=== PATIENT | male | born 1935 | race Caucasian/White ===

== ENCOUNTER → 2021-04-11 13:04 | Outpatient (BNVA) | payer MEDICARE, MEDICAID, SELFPAY | PROVIDERS: PCP Internal Medicine; Visit Provider Urology | DX: N40.1 Benign prostatic hyperplasia with lower urinary tract symptoms (principal); N13.8 Other obstructive and reflux uropathy; N39.0 Urinary tract infection, site not specified | CPT/HCPCS: 99212 ==

== ENCOUNTER → 2022-04-15 13:16 | Outpatient (BNVA) | payer MEDICARE, MEDICAID, SELFPAY | PROVIDERS: PCP Internal Medicine; Visit Provider Urology | DX: N40.1 Benign prostatic hyperplasia with lower urinary tract symptoms (principal); N13.8 Other obstructive and reflux uropathy; N39.0 Urinary tract infection, site not specified | CPT/HCPCS: 51798; 99212 ==

== ENCOUNTER 2023-04-16 13:06 | Outpatient (AMB) | payer MEDICARE, MEDICAID, SELFPAY ==
--- NOTE | 2023-04-16 13:40 | MHC.OFFVIS ---
Intake Intake Visit Reasons: 1y/PVR Intake Note: Patient presents today for a yearly follow-up and PVR Meds- None Allergies to Antibiotic- No Known Allergies Blood Thinner- clopidogrel Post Void Residual:0ml Patient Symptoms: Patient stated he does not have lamar UTI symptoms Allergies latex [LATEX] Allergy (Unknown, Verified 04/16/23 13:51) RASH morphine [Morphine] Allergy (Unknown, Verified 04/16/23 13:51) GI UPSET/ HALLUCINATIONS, vomiting Latex Gloves Allergy (Unknown, Uncoded 04/16/23 13:51) rash HPI HPI Comments History of Present Illness Details Rafat is a pleasant male. He is a patient of Dr. Gonzalez. He seen for following urologic conditions - lower urinary tract symptoms Minimal issues with urination PVR stays low Follows at the [place] No recurrence of infection since last seen Lower urinary tract symptoms Prior history of laser prostatectomy Prior recurring UTIs Has standby Bactrim for breakthrough infection Last culture 04/28 Klebsiella ampicillin resistant Review of Systems Const Denies chills and Denies fever(s) Card Reports no additional complaints and Denies syncope Resp Denies cough GI Denies abdominal pain and Denies heartburn Reports as per HPI and Denies change in libido Neuro Denies syncope Psych Denies change in libido Endo Denies change in libido Physical Exam Const General: cooperative, healthy appearing, comfortable and no acute distress Orientation/consciousness: patient oriented x3 HEENT Face and sinus: Yes normal facial exam Mouth: moist mucous membranes Neck Neck: Yes normal visual inspection, Yes full ROM and Yes trachea midline Chest Chest palpation & inspection: normal inspection of the chest Resp Effort & Inspection: normal respiratory effort, able to speak in complete sentences and no respiratory distress GI Inspection: Yes normal to inspection Back/Spine/Pelvis Cervical Spine: normal cervical lordosis Thoracic/Lumbar Spine: thoracic and lumbar spine normal to inspection Skin General skin exam: no rashes or lesions noted Neuro General: patient oriented x3, gait normal, tone normal and moves all extremities Extrem General: Yes normal to inspection and Yes capillary refill normal Office Procedures Post Void Residual Post Residual Void Post Void Residual (PVR): 0 [id number] Void Residual by ultrasound Assessment & Plan Assessment & Plan (1) Recurrent UTI: Code(s): N39.0 - Urinary tract infection, site not specified (2) BPH w urinary obs/LUTS: Code(s): N40.1 - Benign prostatic hyperplasia with lower urinary tract symptoms; N13.8 - Other obstructive and reflux uropathy Plan Twelve month follow-up Orders: Orders AMB Post Void Residual by ultrasound 04/16/23 R33.9 - Retention of urine, unspecified Patient Instructions: Imaging studies, laboratory and physical exam results were discussed and reviewed in detail. No major barriers to patient understanding were identified. An opportunity to ask questions regarding the treatment plan was provided. All questions were answered. The patient expressed understanding and agreement with the above treatment plan. The patient is aware they should contact our office by phone for worsening of their current condition or the appearance of new urologic symptoms. Compliance is encouraged with any medications and followup testing that is ordered. It is a privilege to participate in the urologic care of your patient. If you have any questions or concerns regarding treatment for the above conditions, or other urologic issues, please do not hesitate to contact me. The office telephone contact is [phone]. This note is constructed using voice recognition software. While every effort has been made to ensure accuracy neurological surgeon errors may have been included. Yours sincerely, Dr Ariel Wei MD, [facility] - Urology Providers of Expert, Compassionate Care for the Genitourinary System Coding Level of Care Code Est Pt Level 4 (53889) Diagnoses Recurrent UTI N39.0 BPH w urinary obs/LUTS N40.1; N13.8 CPT Codes Post Residual Void - PVR CPT Code: 55557-Oajo Void Residual by ultrasound ([id number])
== END 2023-04-16 13:57 | disposition home or self-care (01) ==
PROVIDERS: PCP Internal Medicine; Visit Provider Urology
DX: N39.0 Urinary tract infection, site not specified (principal); N40.1 Benign prostatic hyperplasia with lower urinary tract symptoms; N13.8 Other obstructive and reflux uropathy
CPT/HCPCS: 99213

== ENCOUNTER → 2023-04-16 13:06 | Outpatient (BNVA) | payer MEDICARE, MEDICAID, SELFPAY | PROVIDERS: Visit Provider Urology | DX: N40.1 Benign prostatic hyperplasia with lower urinary tract symptoms (principal); N39.0 Urinary tract infection, site not specified; N13.8 Other obstructive and reflux uropathy | CPT/HCPCS: 51798; 99212 ==

== ENCOUNTER 2024-05-23 10:48 | Outpatient (AMB) | payer MEDICARE, MEDICAID, SELFPAY ==
--- NOTE | 2024-05-23 10:55 | A.OFFVIS_ITS ---
Intake Visit Reasons: 1yr/PVR Intake Note: Patient presents today for a yearly follow-up and PVR Meds- None Allergies to Antibiotic- No Known Allergies Blood Thinner- clopidogrel Post Void Residual:0ml'S TODAY'S PVR: 21ML'S Thread Pulling Machine Attendant Required: No Allergies latex [LATEX] Allergy (Unknown, Verified 05/23/24 10:57) RASH morphine [Morphine] Allergy (Unknown, Verified 05/23/24 10:57) GI UPSET/ HALLUCINATIONS, vomiting Latex Gloves Allergy (Unknown, Uncoded 05/23/24 10:57) rash HPI Comments Details: Rafat is a pleasant male. He is a patient of Dr. Gonzalez. He seen for following urologic conditions - lower urinary tract symptoms PVR remains low Follows at the [place] No recurrence of infection since last seen May follow-up p.r.n. Given starter prescription for Bactrim if has UTI at weekend Lower urinary tract symptoms Prior history of laser prostatectomy Prior recurring UTIs Has standby Bactrim for breakthrough infection Last culture 04/28 Klebsiella ampicillin resistant Review of Systems Const Denies chills and Denies fever(s) Card Reports no additional complaints and Denies syncope Resp Denies cough GI Denies abdominal pain and Denies heartburn Reports as per HPI and Denies change in libido Neuro Denies syncope Psych Denies change in libido Endo Denies change in libido Physical Exam Const General: cooperative, healthy appearing, comfortable and no acute distress Orientation/consciousness: patient oriented x3 HEENT Face and sinus: Yes normal facial exam Mouth: moist mucous membranes Neck Neck: Yes normal visual inspection, Yes full ROM and Yes trachea midline Chest Chest palpation & inspection: normal inspection of the chest Resp Effort & Inspection: normal respiratory effort, able to speak in complete sentences and no respiratory distress GI Inspection: Yes normal to inspection Back/Spine/Pelvis Cervical Spine: normal cervical lordosis Thoracic/Lumbar Spine: thoracic and lumbar spine normal to inspection Skin General skin exam: no rashes or lesions noted Neuro General: patient oriented x3, gait normal, tone normal and moves all extremities Extrem General: Yes normal to inspection and Yes capillary refill normal Office Procedures Post Void Residual Post Residual Void Post Void Residual (PVR): 21 [id number] Void Residual by ultrasound Results AMB Urinalysis, Automated UA Leukoctes 0 Mya/uL Last Edit by SOL Miller on 05/23/24 11:36 UA Nitrite Negative Last Edit by SOL Miller on 05/23/24 11:36 UA Urobilinogen 0.2 mg/dL Last Edit by [facility] on 05/23/24 11:3 6 UA Protein 0 mg/dL Last Edit by Angelito Jones [facility] on 05/23/24 11:36 UA pH 6.0 Last Edit by Angelito Jones [facility] on 05/23/24 11:36 UA Blood 0 Julio/uL Last Edit by Angelito Jones [facility] on 05/23/24 11:36 UA Specific [place] 1.015 Last Edit by Angelito Jones [facility] on 05/23/24 11: 36 UA Ketone Negative Last Edit by Angelito Jones [facility] on 05/23/24 11:36 UA Bilirubin 0 mg/dL Last Edit by Angelito Jones [facility] on 05/23/24 11:36 UA Glucose 0 mg/dL Last Edit by Angelito Jones [facility] on 05/23/24 11:36 Assessment & Plan Assessment & Plan (1) BPH w urinary obs/LUTS: Code(s): N40.1 - Benign prostatic hyperplasia with lower urinary tract symptoms; N13.8 - Other obstructive and reflux uropathy Category: Medical (2) Recurrent UTI: Code(s): N39.0 - Urinary tract infection, site not specified Category: Medical Plan P.r.n. follow-up Orders: Orders AMB Urinalysis Automated Today Z13.9 - Encounter for screening, unspecified Medications: New sulfamethoxazole-trimethoprim 400-80 mg (Bactrim) 1 tab PO BID 5 days 10 tabs 0RF N39.0 - Urinary tract infection, site not specified Patient Instructions: This note is constructed using voice recognition software. While every effort has been made to ensure accuracy producer errors may have been included. Imaging studies, laboratory and physical exam results were discussed and reviewed in detail. No major barriers to patient understanding were identified. An opportunity to ask questions regarding the treatment plan was provided. All questions were answered. The patient expressed understanding and agreement with the above treatment plan. The patient is aware they should contact our office by phone for worsening of their current condition or the appearance of new urologic symptoms. Compliance is encouraged with any medications and followup testing that is ordered. It is a privilege to participate in the urologic care of your patient. If you have any questions or concerns regarding treatment for the above conditions, or other urologic issues, please do not hesitate to contact me. The office telephone contact is [phone]. Sincerely, Dr Ariel Wei MD, [facility] - Urology Compassionate Specialist Care for the Genitourinary System Coding Level of Care Code Est Pt Level 4 (68539) Diagnoses BPH w urinary obs/LUTS N40.1; N13.8 Recurrent UTI N39.0 CPT Codes Post Residual Void - PVR CPT Code: 59231-Qlkr Void Residual by ultrasound ([id number])
--- OUTSIDE RECORDS SUMMARY | 2024-05-23 13:07 | XMS_ITS | Clinical Summary ---
Author Organization Formerly [facility] Address [address] [place] [address] Care Team Providers Care Occupancy Specialist Name Role Phone Unavailable Primary Care Provider Unavailabl e Social History Tobacco Use Types Packs/Day Years Used Date Smoking Tobacco: Never Assessed Sex and Gender Information Value Date Recorded Sex Assigned at Not on file Gender Identity Not on file Sexual Orientation Not on file Plan of Treatment Health Maintenance Due Date Last Done Comments DTaP/Tdap/Td Vaccines (1 - Tdap) 08[birth year]10/1954 Pneumococcal Vaccines 50+ (1 of 1 - PCV) 08/10/1985 Zoster (Shingles) Vaccine (1 of 2) 08/10/1985 RSV Vaccine 60 years and old er and Patients (1 - 1-dose 75+ series) 08/10/2010 Influenza Vaccine 09/09/2023 COVID-19 Vaccine ( - 2023-2 5 season) 2023 Hepatitis B Vaccines Aged Out No long er eligible based on patient's age to complete this topic
--- OUTSIDE RECORDS SUMMARY | 2024-05-23 13:07 | XMS_ITS | Encounter Summary ---
Author Organization [facility] Address [address] [facility] [address] [place] [address] Phone Care Team Providers Care District Adviser Name Role Phone Gigi Gonzalez MD Primary Care Provider Gigi Gonzalez MD Unavailable [phone] Yosvany Galeas MD Unavailable Un available Raymundo Chiu MD Unavailable + Oliver Lezama MD Unavailable [phone] Encounter Details Date Type Department Care Team (Late st Contact Info) Description 03/21/2020 Procedure [facility], [address] [address] Social History Tobacco Use Types Packs/Day Years Used Date Smoking Tobacco: Never Smokeless Tobacco: Never Alcohol Use Standard Drinks/Week Comments No 0 (1 standard drink = 0.6 oz pur e alcohol) Sex and Gender Information Value Date Recorded Sex Assigned at Male 06/20/2021 1:00 AM EDT Gender Identity Male 06/20/2021 1:00 AM EDT Sexual Orientation Straight 06/20/2021 1: 00 AM EDT documented as of this encounter Plan of Treatment Upcoming Encounters Date Type Department Care Team (Late Contact Info) Description 08/04/2024 1:00 PM EDT Appointment [facility] Internal Medicine [address] [place], [place] [phone] Gigi Gonzalez MD [address] [place], [place] [phone] documented as of this encounter Visit Diagnoses Not on filedocumented in this encounter Additional Health Concerns Infection Onset Date Last Indicated Resolved Time CoV-Presumed 07/08/2021 07/08/2021 07/29/2021 1:21 AM EDT Assessment Noted Time PHQ-2 Depression Total Score: 0 06/01/19 20 3:59 PM EDT documented as of this encounter Care Teams District Adviser Relationship Specialty Start Date End Date Gigi Gonzalez MD [address] [place] [address] PCP - General Internal Medicine 12/15/16 Gigi Gonzalez MD [address] [place] [address] Insurance Assigned Provider 05/15/23 Yosvany Galeas MD Sausage Wrapper Cardiology 03/22/18 Raymundo Chiu MD Urology 09/28/19 Oliver Lezama MD [address] [place] [phone] Rheumatology 06/19/20 documented as of this encounter Additional Source Comments The information contained in this document represents components of the legal health record. It is not the complete legal health record.[facility]
--- OUTSIDE RECORDS SUMMARY | 2024-05-23 13:07 | XMS_ITS | Encounter Summary ---
Author Organization [facility] Address [address] [place] [address] [place] [address] Phone Care Team Providers Care Barber Apprentice Name Role Phone Gigi Gonzalez MD Primary Care Provider [phone] Gigi Gonzalez MD Unavailable [phone] Yosvany Galeas MD Unavailable Un available Raymundo Chiu MD Unavailable + Oliver Lezama MD Unavailable Encounter Details Date Type Department Care Team (Late st Contact Info) Description 04/08/2020 Ancillary Orders [facility] [address] [place], [place] [phone] System, Provider Not In, [place] [address] Social History Tobacco Use Types Packs/Day Years [...] Info) Description 08/04/2024 1:00 PM EDT Appointment [facility] Internal Medicine [address] [place], [place] [phone] Gigi Gonzalez MD [address] [place] [address] [email or web address] documented as of this encounter Results * MRI Brain Outside (No Interpretation) (10/06/2015 12:00 AM EDT) Narrative SYSTEMGENERATED, DOCUMENTATION - 04/08/2020 11:04 AM EST This study is for PACS storage only and not for interpretation. Provider Not In System PhD IMG OUTSIDE I MAGING W/OUT INTERPRETATION documented in this encounter Visit Diagnoses Not on filedocumented in this encounter Additional Health Concerns Infection Onset Date Last Indicated Resolved Time CoV-Presumed 07/08/2021 07/08/2021 07/29/2021 1:21 AM EDT Assessment Noted Time PHQ-2 Depression Total Score: 0 06/01/19 20 3:59 PM EDT documented as of this encounter Care Teams Barber Apprentice Relationship Specialty Start Date End Date Gigi Gonzalez MD [address] [place] [address] [email or web address] PCP - General Internal Medicine 12/15/16 Gigi Gonzalez MD [address] [place] [address] Insurance Assigned Provider 05/15/23 Yosvany Galeas MD Agricultural Equipment Test Engineer Cardiology 03/22/18 Raymundo Chiu MD Urology 09/28/19 Oliver Lezama MD [address] [place] [phone] Rheumatology 06/19/20 documented as of this encounter Additional Source Comments The information contained in this document represents components of the legal health record. It is not the complete legal health record.[facility]
--- OUTSIDE RECORDS SUMMARY | 2024-05-23 13:07 | XMS_ITS | Encounter Summary ---
Author Organization [facility] Address [address] [facility] [address] [place] [address] Phone Care Team Providers Care Inventory Analyst Name Role Phone Gigi Gonzalez MD Primary Care Provider [phone] Gigi Gonzalez MD Unavailable [phone] Yosvany Galeas MD Unavailable Un available Gavi Carrasco RN Unavailable [phone] Raymundo Chiu MD Unavailable + Oliver Lezama MD Unavailable Encounter Details Date Type Department Care Team (Late st Contact Info) Description 03/24/2018 Procedure Pass [facility] Cardiac Florist [address] [place] [phone] Social History Tobacco Use Types Packs/Day Years [...] Encounters Date Type Department Care Team (Late st Contact Info) Description 08/04/2024 1:00 PM EDT Appointment [facility] Internal Medicine [address] [place], [place] [phone] Gigi Gonzalez MD [address] [place], [place] [phone] [email or web address] documented as of this encounter Visit Diagnoses Not on filedocumented in this encounter Additional Health Concerns Infection Onset Date Last Indicated Resolved Time CoV-Presumed 07/08/2021 07/08/2021 07/29/2021 1:21 AM EDT Assessment Noted Time PHQ-2 Depression Total Score: 0 12/16/19 10:29 AM EST documented as of this encounter Care Teams Inventory Analyst Relationship Specialty Start Date End Date Gigi Gonzalez MD [address] [place] [address] PCP - General Internal Medicine 12/15/16 Gigi Gonzalez MD [address] [place] [address] Insurance Assigned Provider 05/15/23 Yosvany Galeas MD Load Checker Cardiology 03/22/18 Gavi Carrasco, SPENCER [address] [place] [id number] [email or web address] Insolvency Consultant 04/22/18 05/08/18 Raymundo Chiu MD [address] [place] [phone] Urology 09/28/19 Oliver Lezama MD [address] [place] [phone] Rheumatology 06/19/20 documented as of this encounter Additional Source Comments The information contained in this document represents components of the legal health record. It is not the complete legal health record.[facility]
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
== END 2024-05-23 11:41 | disposition home or self-care (01) ==
LOC: HO.HUSH 10:48
PROVIDERS: PCP Internal Medicine; Visit Provider Urology
DX: N40.1 Benign prostatic hyperplasia with lower urinary tract symptoms (principal); N13.8 Other obstructive and reflux uropathy; N39.0 Urinary tract infection, site not specified; Z13.9 Encounter for screening, unspecified
CPT/HCPCS: 99214

== ENCOUNTER → 2024-05-23 10:48 | Outpatient (BNVA) | payer MEDICARE, MEDICAID, SELFPAY | PROVIDERS: PCP Internal Medicine; Visit Provider Urology | DX: N40.1 Benign prostatic hyperplasia with lower urinary tract symptoms (principal); N13.8 Other obstructive and reflux uropathy; N39.0 Urinary tract infection, site not specified | CPT/HCPCS: 51798; 81003; 99212 ==